=== PATIENT | female | born 1995 | race Caucasian/White ===

== ENCOUNTER 2017-02-20 22:10 | Emergency (ER) | payer OTHER ==
[~2017-02-20] VITALS: Ht 180.3 cm; Wt 117.6 kg
[2017-02-20 23:19] LABS: HEMATOCRIT 36.9 % (36.0-46.0); MCH 29.1 PG (29.0-34.0); MCHC 33.9 G/DL (30.0-36.0); MEAN PLAT.VOLUME 10.8 uM^3 (9.5-12.4); PLATELET COUNT 258 K/uL (156-360); RBC DIS.WIDTH-SD 37.6 % (39-53); RED BLOOD COUNT 4.29 M/uL (3.80-5.20); WHITE BLOOD COUNT 12.1 K/uL (4.1-10.2)
[2017-02-20 23:27] LABS: CHLORIDE 105 mEq/L (99-109); POTASSIUM 3.8 mEq/L (3.7-5.4); SODIUM 138 mEq/L (136-147)
[2017-02-20 23:30] LABS: GLUCOSE 92 mg/dL (70-99)
[2017-02-20 23:31] LABS: ANION GAP 9 MEQ/L (2-14)
[2017-02-20 23:32] LABS: TOTAL BILIRUBIN 0.6 mg/dL (0.0-1.0)
[2017-02-20 23:33] LABS: ALKALINE PHOSPHATASE 79 IU/L (3-129)
[2017-02-20 23:34] LABS: GFR ESTIMATE (CALCULATED) > 59 mL/min/
[2017-02-20 23:35] LABS: UREA NITROGEN (BUN) 11 mg/dL (9-23)
[2017-02-20 23:44] LABS: QUANTITATIVE HCG < 4.0 MIU/ML
[2017-02-21] MEDS ORDERED: CARAFATE1 GM PO (00:22)
[2017-02-21] MEDS ORDERED: ZOFRAN ODT8 MG PO (00:22)
[2017-02-21 00:32] VITALS: BP 117/84
== END 2017-02-21 00:34 | disposition home or self-care (01) ==
LOC: RME 22:10 → EME 22:10 → RME 02-21 00:34
DX: K29.00 Acute gastritis without bleeding (principal); F17.200 Nicotine dependence, unspecified, uncomplicated
CPT/HCPCS: 80053; 81003; 84702; 85027; 99281; 99282

== ENCOUNTER 2018-01-18 08:54 | Emergency (ER) | payer OTHER ==
[~2018-01-18] VITALS: Ht 180.3 cm; Wt 106.0 kg
[~2018-01-18 08:54] MED LIST: CARAFATE1 GM PO; ZOFRAN ODT8 MG PO
[2018-01-18 09:58] LABS: BASOPHIL (%) 0.2 % (0-1); EOSINOPHIL (%) 0.9 % (0-5); EOSINOPHIL COUNT 0.1 K/uL (0-0.3); HEMOGLOBIN 13.8 G/DL (11.9-15.5); IMMATURE GRANULOCYTE (%) 0.4 % (0.0-0.7); LYMPHOCYTE (%) 19.5 % (15-42); MCH 29.4 PG (29.0-34.0); MCHC 34.5 G/DL (30.0-36.0); MCV 85.3 FL (83-99); MONOCYTE (%) 3.3 % (3-12); MONOCYTE COUNT 0.3 K/uL (0-0.8); NEUTROPHIL (%) 75.7 % (45-76); NEUTROPHIL COUNT 7.7 K/uL (1.8-6.4); PLATELET COUNT 251 K/uL (156-360); RBC DIS.WIDTH-CV 12.2 % (11.8-14.6); RBC DIS.WIDTH-SD 38.1 % (39-53); RED BLOOD COUNT 4.69 M/uL (3.80-5.20); WHITE BLOOD COUNT 10.2 K/uL (4.1-10.2)
[2018-01-18 10:08] LABS: D-DIMER ELISA < 150.00 ng/mLDDU (<230)
[2018-01-18 10:10] LABS: ALBUMIN 4.5 g/dL (3.2-4.8); CHLORIDE 105 mEq/L (99-109); POTASSIUM 3.9 mEq/L (3.7-5.4); SODIUM 140 mEq/L (136-147)
[2018-01-18 10:13] LABS: GLUCOSE 111 mg/dL (70-99); TOTAL PROTEIN 7.6 g/dL (6.4-8.3)
[2018-01-18 10:14] LABS: TOTAL BILIRUBIN 0.4 mg/dL (0.0-1.0)
[2018-01-18 10:16] LABS: ALKALINE PHOSPHATASE 105 IU/L (3-129); CREATININE 0.7 mg/dL (0.6-1.3); GFR ESTIMATE (CALCULATED) > 59 mL/min/
[2018-01-18 10:17] LABS: UREA NITROGEN (BUN) 9 mg/dL (9-23)
[2018-01-18 10:18] LABS: AST (GOT) 12 IU/L (2-34)
[2018-01-18 10:19] LABS: ALT (GPT) 11 IU/L (3-49)
[2018-01-18 10:20] LABS: LIPASE 7 U/L (1.0-51.0)
[2018-01-18 10:26] LABS: QUANTITATIVE HCG < 4.0 MIU/ML
[2018-01-18] MEDS ORDERED: ZOFRAN4 MG PO (13:18)
[2018-01-18] MEDS ORDERED: BENTYL20 MG PO (13:18)
[2018-01-18] MEDS ORDERED: PROTONIX40 MG PO (13:18)
[2018-01-18 13:46] VITALS: BP 132/76
== END 2018-01-18 13:51 | disposition home or self-care (01) ==
LOC: EME 08:54
PROVIDERS: Emergency Medicine
DX: R10.13 Epigastric pain (principal); R11.2 Nausea with vomiting, unspecified; F17.210 Nicotine dependence, cigarettes, uncomplicated; Z71.6 Tobacco abuse counseling
CPT/HCPCS: 71045; 80053; 83690; 84702; 85025; 85379; 85610; 93005; 99281; 99285; C9113; J1885; J2405; J2765; J7030